=== PATIENT | male | born 1970 | race Caucasian/White ===

== ENCOUNTER 2025-09-17 07:54 | Emergency (ER) | payer OTHER, SELFPAY ==
[2025-09-17] VITALS (10 sets, daily range): BP systolic 131–172; BP diastolic 89–118; PULSE 66–70; TEMP 36.4; O2SAT 98–100; BMI 34.3
--- NOTE | 2025-09-17 08:03 | ECG_ITS ---
The [facility] Test Date: 2025-09-17 Pat Name: Vaughn Koo Department: Room: - Gender: Male Chart Clerk: : 1970 Requested By: [id number] Order Number: [id number] Reading MD: HERNAN LANZA M.D. Measurements Intervals [place] Rate: 60 P: 8 IA: 130 QRS: 53 QRSD: 92 T: 44 QT: 402 QTc: 402 Interpretive Statements 1100 Sinus rhythm 9110 normal ECG No previous ECG available for comparison Electronically Signed On 09-17-2025 9:03:53 EDT by HERNAN LANZA M.D.
--- NOTE | 2025-09-17 08:03 | CT_ITS ---
The [address] [address] Patient Name: LEV BARBOZA MRN: [id number] date: 1970 Sex: M Assigned Patient Location: ER Current Patient Location: ER Accession/Order Number: [id number] Exam Date: 09/17/2025 08:37 Report Date: 09/17/2025 09:15 At the request of: BRIDGETT FARFAN MD Procedure: CT abdomen pelvis wo con CT ABDOMEN AND PELVIS WITHOUT CONTRAST CLINICAL DATA: Severe right flank pain. COMPARISON: None Spiral images were obtained through the abdomen and pelvis without contrast. This CT exam was performed using one or more following dose reduction techniques: Automated exposure control, adjustment of the mA and/or kV according to patient size, or use of iterative reconstruction technique. Limited cuts through the lung bases show minimal linear scarring or atelectasis on the left. Evaluation of the intra-abdominal organs is slightly limited by the absence of contrast. No calcified gallstones are visualized. No intrahepatic masses are seen. The spleen, pancreas and adrenal glands show no acute findings. There is mild bilateral perinephric fibrofatty stranding. A tiny stone is seen at the mid to lower pole on the left. There are also 1 or 2 potential punctate stones on the right. There is an exophytic 2.8 cm hypodensity at the anterolateral right kidney which may be a cyst. There is mild right hydronephrosis. A tiny 2 mm stone is seen at the ureterovesical junction on that side. There is minor atherosclerotic plaque at a normal caliber aorta. Small lymph nodes are seen. There is no ascites. No dilated small bowel loops are visualized. There is air and a small amount of stool within the colon. There is a diverticulum at the proximal transverse colon. Degenerative changes are noted spine, greatest at L4-5. Images through the pelvis show no appendiceal inflammation. There is no dilated small bowel. There is minimal distal colonic stool. There are a couple additional colonic diverticula, without associated active inflammation. The prostate is not significantly enlarged. The urinary bladder is poorly distended for assessment. No ascites is seen. CT/CT abdomen pelvis wo con IMPRESSION: BILATERAL NEPHROLITHIASIS. TINY PARTIALLY OBSTRUCTING RIGHT URETEROVESICAL JUNCTION STONE. PROBABLE RIGHT RENAL CYST. MINOR DIVERTICULOSIS. Impression dictated by: Taylor Beltran M.D. 09/17/2025 9:15 AM Dictation Location: [place] [address] Electronically authenticated by: [id number] Y Date: 09/17/2025 09:15
[2025-09-17 08:16] LABS: Hematocrit 46.9 % (42.0-54.0); Hemoglobin 16.6 g/dL (14.0-18.0); Immature Granulocytes Abs Auto 0.01 10^3/uL (0.00-0.03); Immature Granulocytes Pct Auto 0.1 % (0.0-0.5); Lymphocytes Absolute Auto 2.4 10^3/uL (1.2-3.8); Mean Corpuscular HGB Conc 35.4 g/dL (29.9-35.2); Mean Corpuscular Hemoglobin 31.1 pg (25.9-34.0); Mean Corpuscular Volume 87.8 fL (80.0-94.0); Platelet Count 247 10^3/uL (150-450); Red Blood Count 5.34 10^6/uL (4.70-6.10); White Blood Count 9.5 10^3/uL (4.0-11.0)
[2025-09-17] MEDS: KETOROLAC TROMETHAMINE 30 MG/ML VIAL IVP (08:16)
[2025-09-17 08:17] LABS: Glucose Urine UA NEGATIVE (NEGATIVE)
[2025-09-17 08:37] LABS: Cast Seen? NONE SEEN #/LPF (NONE SEEN); Crystals Seen? None Seen #/HPF (None Seen); Urine Culture Indicated NO
[2025-09-17 08:43] LABS: Alanine Aminotransferase 37 U/L (16-63); Albumin Globulin Ratio 1.2; Albumin Level 4.1 g/dL (3.4-5.0); Alkaline Phosphatase 69 U/L (46-116); Anion Gap 13.6; Aspartate Amino Transferase 16 U/L (15-37); Blood Urea Nitrogen 16.0 mg/dL (7.0-18.0); Calcium 8.5 mg/dL (8.5-10.1); Carbon Dioxide 27.1 mmol/L (21.0-32.0); Chloride 101 mmol/L (98-107); Estimated GFR (African America >60 (>=60 mL/min/1.73m^2); Estimated GFR (Non-African Ame 60 (>=60 mL/min/1.73m^2); Globulin 3.4 g/dL; Glucose 137 mg/dL (74-106); Potassium 3.7 mmol/L (3.5-5.1); Sodium 138 mmol/L (136-145); Total Protein 7.5 g/dL (6.4-8.2)
[2025-09-17 08:48] LABS: Lactate/Lactic Acid 2.1 mmol/L (0.4-2.0)
[2025-09-17] MEDS: 0.9 % SODIUM CHLORIDE 1,000 ML 500 ML IV (09:36)
[2025-09-17] MEDS: OXYCODONE HCL/ACETAMINOPHEN 5MG/325MG 1 TAB PO (09:36)
--- OUTSIDE RECORDS SUMMARY | 2025-09-17 09:54 | XMS_ITS | Clinical Summary ---
Author Organization [facility] Healthcare Address [address] [place] [address] Care Team Providers Care Plant Health Manager Name Role Phone Tuan Ugalde MD Primary Care Provider [phone] Allergies No known active allergies Medications MedicationSigDispense QuantityRefillsLast FilledStart DateEnd DateStatus scopolamine (Transderm-Scop) 1 mg/72 hr patch 72 hour patch Indications:Motion sickness, sequelaPlace 1 patch on the skin every 3rd (third) day 24 patch 306/4Active Meloxicam 15 MG tablet dispersible Indications:Right knee pain, unspecified chronicityTake 15 mg by mouth Daily 30 tablet 11005/29/2024ctive azithromycin (Zithromax) 250 MG tablet Indications:Upper respiratory tract infection, unspecified typeTake 2 tabs PO x 1 day then 1 tab PO daily x 4 days 6 tablet 11/09/2024ctive methylPREDNISolone (Medrol Dospak) 4 MG tablets Indications:Upper respiratory tract infection, unspecified typeFollow schedule on package instructions 21 tablet 11/09/2024ctive meloxicam (Mobic) 15 MG tablet Indications:Right knee pain, unspecified chronicityTake 1 tablet (15 mg) by mouth Daily 90 tablet 304//[id number]/6Active Active Problems ProblemNoted DateDiagnosed DateUpper respiratory tract szttqmind39/23/2024ight knee pain05/29/2023 Social History Tobacco UseTypesPacks/DayYears UsedDateSmoking Tobacco: NeverSmokeless Tobacco: CurrentChew Tobacco Cessation:Ready to Q uit: Not Asked; Counseling Given: Not Answered B1300 Health LiteracyAnswerDate RecordedHow often do you need to have someone help you when you read instructions, pamphlets, or other written material from your doctor or pharmacy?Never11/09/2024Social Connection and Isolation Panel AnswerDate RecordedIn a typical week, how many times do you talk on the phone with family, friends, or neighbors?More than three times a week11/09/2024How often do you get together with friends or relatives?Three times a week11/09/2024 How often do you attend yazdanism or restorationist services?More than 4 times per year 11/09/2024o you belong to any clubs or organizations such as yazdanism groups, unions, fraternal or athletic groups, or school groups?No11/09/2024How often do you attend meetings of the clubs or organizations you belong to?More than 4 times per year11/09/2024re you , , , , never , or living with a partner?Dwoluod2311/09/2024UDIT-CAnswerDate RecordedQ1: How often do you have a drink containing alcohol?2-4 times a month11/09/2024Q2: How many drinks containing alcohol do you have on a typical day when you are drinking?1 or Q3: How often do you have six or more drinks on one occasion?Less than shqcfdi6311/09/2024[facility] - Occupational Stress QuestionnaireAnswerDate RecordedDo you feel stress - tense, restless, nervous, or anxious, or unable to sleep at night because yourmind is troubled all the time - these days?Not at all11/09/2024Exercise Vital SignAnswer Date RecordedOn average, how many days per week do you engage in moderate to strenuous exercise (like a brisk walk)?3 days11/09/2024On average, how many minutes do you engage in exercise at this level?40 min11/09/2024Housing Stability Vital SignAnswerDate RecordedIn the last 12 months, was there a time when you were not able to pay the mortgage or rent on time?No11/09/2024Number of Times Moved in the Last YearNot on file11/09/2024t any time in the past 12 months, were you homeless or living in a [place] (including now)?No11/09/2024Sex and Gender InformationValueDate RecordedSex Assigned at BirthNot on fileLegal XagDjcw1401/30/2023 7:32 PM EDTGender IdentityNot on fileSexual OrientationNot on file Last Filed Vital Signs Vital SignReadingTime TakenCommentsBlood Wnwcqhmm557/8802/10/2024 1:55 PM EDT Lonqc31862/25/2024 1:55 PM KAAZcswypophdu35.7 ??C (98.1 ??F)02/20/2024 7:56 AM EDTRespiratory Rate--Oxygen Blpipnyxuu80%02/10/2024 1:55 PM EDTInhaled Oxygen Concentration--Wwxnbr866 kg (259 lb)02/20/2024 7:56 AM IIRZvghuj366.9 cm (6') 02/20/2024 7:56 AM EDTBody Mass Index35.13002/20/2024 7:56 AM EDT Plan of Treatment Health MaintenanceDue DateLast DoneCommentsCT Gtsyewutrtot1971FIT-DNA 1970FIT1970FOBT1970 7781Ezhckwviudchl1970Influenza Vaccine (#1)0401Cgqnudfkufw972Colorectal Cancer Screening 03/21/2032 Procedures Procedure NamePriorityDate/TimeAssociated DiagnosisCommentsCOLONOSCOPYRoutine 03/21/2022 12:00 PM EDT from Last 3 Months or Most Recently Relevant to Health Maintenance Results * Colonoscopy (03/21/2022 12:00 PM EDT)Anatomical RegionLateralityModality EndoscopySpecimen (Source)Anatomical Location / LateralityCollection Method / VolumeCollection TimeReceived Time03/21/2022 12:00 PM EDT Narrative 03/22/2022 12:00 PM EDT PERFORMED AT [facility] LOCATION:[id number] SEE Report Procedure Note CONVERSION, GENERIC - 04/03/2023 PERFORMED AT [facility] LOCATION:[id number] SEE Report Authorizing ProviderResult TypeResult StatusPeter Marlon Ugalde MDENDOSCOPY PROCEDURE ORDERABLESFinal Result from Last 3 Months or Most Recently Relevant to Health Maintenance Insurance Care Teams Team MemberRelationshipSpecialtyStart DateEnd Date Tuan Ugalde MD [address] [place] [address] PCP - Generalmily Medicine03/26/23
--- OUTSIDE RECORDS SUMMARY | 2025-09-17 09:54 | XMS_ITS | Clinical Summary ---
Author Organization [facility] Address [address] [place] [address] Phone Care Team Providers Care Back Shoe Operator Name Role Phone Vinicio Crespo DO Primary Care Provider Social History Tobacco UseTypesPacks/DayYears UsedDateSmoking Tobacco: Never AssessedSex and Gender InformationValueDate RecordedSex Assigned at BirthNot on fileLegal Sex Male10/12/2022 9:54 PM ESTGender IdentityNot on fileSexual OrientationNot on file Last Filed Vital Signs Vital SignReadingTime TakenCommentsBlood Pressure--Pulse--Temperature-- Respiratory Rate--Oxygen Saturation--Inhaled Oxygen Concentration--Fpncns509 kg (243 lb 13.3 oz)07/03/2019 7:57 AM PFZSifcuk171.8 cm (5' 11.97 )07/03/2019 7:57 AM EDTBody Mass Index33. 7:57 AM EDT Plan of Treatment Not on file Care Teams Team MemberRelationshipSpecialtyStart DateEnd Date Vinicio Crespo DO [address] [facility] [address] [place] [address] PCP - General06/18/19
--- NOTE | 2025-09-17 10:22 | ED_ITS ---
HPI HPI - Back Pain/Injury General Chief Complaint: Back Pain/Injury Stated Complaint: possible kidney stone - back pain Time Seen by Provider: 09/17/25 08:02 Source: patient Mode of arrival: walk-in Limitations: no limitations History of Present Illness HPI Narrative: The patient presented today with a right sided flank pain associated with no symptoms of fever or any burning with urination, he mentioned that that is also was associated with some nausea and vomiting The patient never had any similar presentation No fever no chills no other concerns no degeneration of the pain and the patient is giving the pain 10 out of 10 Related Data Previous Rx's ?Medication ?Instructions ?Recorded cephalexin 500 mg capsule 500 mg PO BID 7 days #14 cap s 09/17/25 diclofenac sodium 75 mg 75 mg PO BID PRN pain #20 ta bs 09/17/25 tablet,delayed release tamsulosin 0.4 mg capsule (Flomax) 0.4 mg PO DAILY #10 caps 09/17/25 Allergies Allergy/AdvReac Type Severity Reaction Status Date / Time No Known Drug Allergies Allergy Verified 09/17/25 07:59 Opioid HPI Opioid Management Most Recent Opioid Data: Last Pain Scale 10 Today, 08:22 Last ED Pain Assessment Today, 08:22 Review of Systems ROS Status of ROS 10 or more systems reviewed and unremark able except as noted in history and below PFSH PFSH Social History Little interest or pleasure in doing things: not at all Feeling down, depressed, or hopeless: not at all Exam Narrative Exam Narrative: Nurses notes and vital signs reviewed and patient is not hypoxic. General: Well-appearing and in no apparent distress. Skin: Warm, dry, no pallor noted. No rash. Head: Normocephalic, atraumatic. Neck: Supple, non-tender. Eye: Pupils are equal, round and EOMI. No scleral icterus. Cardiovascular: Regular Rate and Rhythm without murmur, gallop or rub. Respiratory: No accessory muscle use or respiratory distress. Lungs are clear to auscultation, no wheezing, rales or rhonchi Chest Wall: no tenderness Back: No midline thoracic or lumbar vertebral tenderness. Right-sided CVA tenderness Musculoskeletal: normal ROM, no calf or popliteal tenderness, no lower extremity edema/swelling GI: Abdomen is soft, non-distended. Normal bowel sounds. No masses appreciated. No tenderness to palpation. No rebound, guarding, or rigidity noted. Neurological: A&O x4. No cranial nerve dysfunction observed. No truncal ataxia. Moves all extremities. Sensation intact. Psychiatric: Cooperative and interactive. Normal mood and affect. Constitutional Vital Signs, click to edit/add: Last Vital Signs Temp 97.5 F L 09/17/25 07:59 Pulse 68 09/17/25 10:37 Resp 18 09/17/25 10:37 BP 131/89 09/17/25 10:37 Pulse Ox 98 09/17/25 10:37 O2 Del Method Room Air 09/17/25 10:37 Course Vital Signs Vital signs: Vital Signs Temperature 97.5 F L 09/17/25 07:59 Pulse Rate 70 09/17/25 07:59 Respiratory Rate 16 09/17/25 07:59 Blood Pressure 156/100 H 09/17/25 07:59 Pulse Oximetry 100 09/17/25 07:59 Oxygen Delivery Method Room Air 09/17/25 07:59 Temperature 97.5 F L 09/17/25 07:59 Pulse Rate 68 09/17/25 10:37 Respiratory Rate 18 09/17/25 10:37 Blood Pressure 131/89 09/17/25 10:37 Pulse Oximetry 98 09/17/25 10:37 Oxygen Delivery Method Room Air 09/17/25 10:37 MDM - Back Pain/Injury MDM Narrative Medical decision making narrative: The patient EKG in the ER showing sinus rhythm with a heart rate of [address] elevation or depression Patient presentation was mostly secondary to kidney stone Patient urine showed no infection but he was covered with Keflex due to bacteriuria CBC and chemistry showed no acute pathology and the patient CAT scan showed that he have a 2 mm kidney stone on the right side The patient was started on Flomax instructed to hydrate very well also started on Voltaren for pain control after his pain was controlled in the ER Patient instructed about coming back to the ER in case of any fever or increasing pain he was referred to the urology as outpatient because of the mild obstruction on the right side Patient instructed on the proper way of straining his urine The patient to follow-up with the primary care within 2 to 3 days and to come ba ck to the ER in case of any worsening of the current symptoms or any new symptoms or concerns Lab Data Labs: Lab Results 09/17/25 09/17/25 Range/Units 08:05 08:10 WBC 9.5 (4.0-11.0) 10^3/uL RBC 5.34 (4.70-6.10) 10^6/uL Hgb 16.6 (14.0-18.0) g/dL Hct 46.9 (42.0-54.0) % MCV 87.8 (80.0-94.0) fL MCH 31.1 (25.9-34.0) pg MCHC 35.4 H (29.9-35.2) g/dL RDW 12.1 (11.0-15.0) % Plt Count 247 (150-450) 10^3/uL MPV 9.2 L (9.5-13.5) fL Neut % (Auto) 63.6 (43.0-75.0) % Lymph % (Auto) 25.3 (20.5-60.0) % [place] % (Auto) 8.2 (1.7-12.0) % Eos % (Auto) 2.1 (0.9-7.0) % Baso % (Auto) 0.7 (0.2-2.0) % Neut # (Auto) 6.1 (1.4-6.5) 10^3/uL Lymph # (Auto) 2.4 (1.2-3.8) 10^3/uL [place] # (Auto) 0.8 (0.3-0.8) 10^3/uL Eos # (Auto) 0.2 (0.0-0.7) 10^3/uL Baso # (Auto) 0.1 (0.0-0.1) 10^3/uL Abs Immat Gran (auto) 0.01 (0.00-0.03) 10^3/uL Imm/Tot Granulo (auto) 0.1 (0.0-0.5) % Sodium 138 (136-145) mmol/L Potassium 3.7 (3.5-5.1) mmol/L Chloride 101 (98-107) mmol/L Carbon Dioxide 27.1 (21.0-32.0) mmol/L Anion Gap 13.6 BUN 16.0 (7.0-18.0) mg/dL Creatinine 1.26 (0.70-1.30) mg/dL Est GFR ( Amer) >60 (>=60 mL/min/1.73m^2) Est GFR (Non-Af Amer) 60 (>=60 mL/min/1.73m^2) BUN/Creatinine Ratio 12.7 Glucose 137 H (74-106) mg/dL Lactate 2.1 H* (0.4-2.0) mmol/L Calcium 8.5 (8.5-10.1) mg/dL Total Bilirubin 0.8 (0.2-1.0) mg/dL AST 16 (15-37) U/L ALT 37 (16-63) U/L Alkaline Phosphatase 69 (46-116) U/L Troponin I High Sens 6.2 (4.0-76.1) pg/mL Total Protein 7.5 (6.4-8.2) g/dL Albumin 4.1 (3.4-5.0) g/dL Globulin 3.4 g/dL Albumin/Globulin Ratio 1.2 Urine Color Yellow (YELLOW) Urine Clarity Clear (CLEAR) Urine pH 5.5 (5.0-9.0) Ur Specific Hood 1.025 (1.005-1.025) Urine Protein Negative (NEG/TRACE) mg/dL Urine Glucose (UA) Negative (NEGATIVE) mg/dL Urine Ketones Negative (NEGATIVE) mg/dL Urine Occult Blood Large A (NEGATIVE) Urine Nitrite Negative (NEGATIVE) Urine Bilirubin Negative (NEGATIVE) Urine Urobilinogen 0.2 (0.2-1.0) EU/dL Ur Leukocyte Esterase Negative (NEGATIVE) Urine RBC 20-50 A (0-2) #/HPF Urine WBC None seen (NONE SEEN) #/HPF Ur Squamous Epith Cells None seen (NONE/RARE) #/LPF Urine Crystals None seen (None Seen) #/HPF Urine Bacteria Trace A (NONE SEEN) #/HPF Urine Casts None seen (NONE SEEN) #/LPF Urine Mucus Trace A (NONE SEEN) Ur Culture Indicated? No Discharge Plan Discharge Chief Complaint: Back Pain/Injury Clinical Impression: Renal colic, Hydronephrosis Patient Disposition: Home, Self-Care Time of Disposition Decision: 10:23 Condition: Good Prescriptions / Home Meds: New tamsulosin [Flomax] 0.4 mg capsule 0.4 mg PO DAILY Qty: 10 0RF cephalexin 500 mg capsule 500 mg PO BID 7 Days Qty: 14 0RF diclofenac sodium 75 mg tablet,delayed release (DR/EC) 75 mg PO BID PRN (Reason: pain) Qty: 20 0RF Print Language: Bruneian Instructions: Renal Colic (ED), How to Strain Your Urine (ED), Hydronephrosis (ED) Additional Instructions: Please hydrate very well come back to the ER in case of any fever or any increase in pain Follow-up with urology as outpatient Referrals: Physician,Non-Staff, [Primary Care Provider] - 1 week [place] MD [Physician, Urology] - 1 week Discharge Date/Time: 09/17/25 10:38
[2025-09-17] MEDS: TAMSULOSIN HCL 0.4 MG CAPSULE PO (10:31)
== END 2025-09-17 10:38 | disposition home or self-care (01) ==
PROVIDERS: Emergency Provider Emergency Medicine
DX: N13.30 Unspecified hydronephrosis (principal); R82.71 Bacteriuria; N23 Unspecified renal colic
CPT/HCPCS: 36415; 74176; 80053; 81001; 83605; 84484; 85025; 93005; 96361; 96374; 96375; 99285; J1885; J2405